=== PATIENT | male | born 1995 | race Caucasian/White ===

== ENCOUNTER 2019-05-22 01:46 | Emergency (ER) | payer BC ==
--- NOTE | 2019-05-22 02:25 | EDM.PDOC ---
ED HPI GENERAL MEDICAL PROBLEM - General Chief Complaint: Laceration Stated Complaint: HEAD INJURY Time Seen by Provider: 05/22/19 02:08 Source of Information: Reports: Patient History Limitations: Reports: No Limitations - History of Present Illness INITIAL COMMENTS - FREE TEXT/NARRATIVE: 23-year-old male who reports that he was taking a shower at about 12:30 AM and he slipped and fell hitting his head on the toilet. He denies any loss of consciousness. He reports pain in the area of his left occiput and there is a wound here with bleeding. He does admit to drinking alcohol tonight. He has had no nausea or vomiting. Denies any arm or leg pains. He reports the pain in his head is a 3-4/10. It is sore pain with some sharp and stinging. No vision problems. He is here with his significant other. There are no other associated signs or symptoms. There are no other modifying factors. 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 (see below) (Nothing) - Related Data Allergies Allergy/AdvReac Type Severity Reaction Status Date / Time No Known Allergies Allergy Verified 05/22/19 02:11 Home Meds: Home Meds NK [No Known Home Meds] 05/22/19 [History] Past Medical History - Past Health History Medical/Surgical History: Denies Medical/Surgical History (Surgical history as detailed below.) - Past Surgical History Musculoskeletal Surgical History: Reports: Other (See Below) (I&D of left wrist injury with repair of median nerve) Social & Family History - Tobacco Use Smoking Status *Q: Unknown Ever Smoked (Nonsmoker) - Alcohol Use Alcohol Use History: Yes Alcohol Use Frequency: Weekly (Has been drinking alcohol tonight.) - Living Situation & Occupation Living situation: Reports: with Significant Other Occupation: Employed ED ROS GENERAL - Review of Systems Review Of Systems: See Below Constitutional: Reports: No Symptoms HEENT: Reports: No Symptoms Respiratory: Reports: No Symptoms Cardiovascular: Reports: No Symptoms Endocrine: Reports: No Symptoms GI/Abdominal: Reports: No Symptoms : Reports: No Symptoms Musculoskeletal: Reports: No Symptoms Skin: Reports: Wound (Laceration to occipital scalp) Neurological: Reports: No Symptoms Hematologic/Lymphatic: Reports: No Symptoms Immunologic: Reports: Other (Last tetanus immunization was 2 years ago.) ED EXAM, SKIN/RASH Exam: See Below Exam Limited By: No Limitations General Appearance: Alert, WD/WN, Mild Distress, Other (Odor of alcohol on his breath. He is calm and cooperative.) Eye Exam: Bilateral Eye: EOMI (There is lateral gaze nystagmus a less than 45.) , Normal Inspection, PERRL Ears: Normal External Exam, Hearing Grossly Normal Nose: Normal Inspection, Normal Mucosa, No Blood Throat/Mouth: Normal Voice, No Airway Compromise Head: Normocephalic, Other (Laceration to left occipital scalp. No crepitus or bony deformity noted.) Neck: Normal Inspection, Non-Tender Respiratory/Chest: No Respiratory Distress, Lungs Clear, Normal Breath Sounds, No Accessory Muscle Use, Chest Non-Tender Cardiovascular: Normal Peripheral Pulses, Regular Rate, Rhythm, No Murmur Peripheral Pulses: 2+: Radial (L), Radial (R) GI/Abdominal: Normal Bowel Sounds, Soft, Non-Tender, No Mass Back Exam: Normal Inspection Extremities: Normal Range of Motion, Non-Tender, No Pedal Edema, Normal Capillary Refill, Other (Healing wound on the volar left wrist) Neurological: Alert, Normal Cognition, No Motor/Sensory Deficits Location, Skin: Head (Left occipital scalp) Characteristics: Linear (Laceration to the subcutaneous tissue that does not involve the galea. It is 3 cm in length.) ED SKIN PROCEDURES - Laceration/Wound Repair Left Occipital Head Appearance: Subcutaneous Distal NVT: Neuro & Vascular Intact Anesthetic Type: Local Local Anesthesia - Lidocaine (Xylocaine): 1% Plain Local Anesthetic Volume: 3cc Skin Prep: Saline Saline Irrigation (cc's): 250 Exploration/Debridement/Repair: Wound Explored, No Foreign Material Found Closed with: [place] (6 sophia placed) Lac/Wound length In cm: 3 Tetanus Status Addressed: Other (Patient was up-to-date on tetanus immunization. ) Complications: No Course - Vital Signs Last Recorded V/S: Last Vital Signs Temp 36.4 C 05/22/19 02:00 Pulse 80 05/22/19 02:00 Resp 18 05/22/19 02:00 BP 124/76 05/22/19 02:00 Pulse Ox 99 05/22/19 02:00 - Orders/Labs/Meds Orders: Active Orders 24 hr Category Date Time Status Cervical Spine wo Cont [CT] Stat Exams 05/22/19 02:19 Ordered Head wo Cont [CT] Stat Exams 05/22/19 02:19 Taken - Radiology Interpretation Free Text/Narrative:: CT scan of head showed no acute pathology and no evidence of acute intracranial injury per Dr. Blackman. CT scan of cervical spine showed no fracture or any other acute pathology per Dr. Blackman. - Re-Assessments/Exams Free Text/Narrative Re-Assessment/Exam: 05/22/19 03:26: The CT scans of the patient's head and neck showed no acute abnormality. The occipital scalp laceration has been cleaned and closed using skin sophia. The patient remains awake, alert and appropriate. He is vitally and neurologically stable. He is stable for discharge. Departure - Departure Time of Disposition: 03:30 Disposition: Home, Self-Care 01 Condition: Good (Improved) Clinical Impression: Occipital scalp laceration Qualifiers: Encounter type: initial encounter Qualified Code(s): S01.01XA - Laceration without foreign body of scalp, initial encounter Contusion of occipital region of scalp Qualifiers: Encounter type: initial encounter Qualified Code(s): S00.03XA - Contusion of scalp, initial encounter Acute alcohol intoxication Qualifiers: Complication of substance-induced condition: uncomplicated Qualified Code(s): F10.920 - Alcohol use, unspecified with intoxication, uncomplicated - Discharge Information Instructions: Alcohol Intoxication, [id number], Head Injury, Adult, Easy-to- Read, Stitches, [place], or Adhesive Wound Closure, [id number] Referrals: PCP,None [Primary Care Provider] - Forms: ED Department Discharge Additional Instructions: The CT scans of your head and neck showed no abnormalities. The wound on your scalp was cleaned and closed using skin sophia. You should wash your hair tonight and then dry your hair completely. Following this, do not get the wound wet until the sophia are out. Staple removal in 7 days. You may take Tylenol and ibuprofen as needed for pain. Avoid drinking alcohol for the next 2-3 days. You may take Tylenol and ibuprofen as needed for pain. Back to the emergency department for increase in pain, signs of infection, vomiting any other concerning sign or symptom. - My Orders Last 24 Hours: My Active Orders 05/22/19 02:19 Cervical Spine wo Cont [CT] Stat Head wo Cont [CT] Stat - Assessment/Plan Last 24 Hours: My Active Orders 05/22/19 02:19 Cervical Spine wo Cont [CT] Stat Head wo Cont [CT] Stat
== END 2019-05-22 03:45 | disposition home or self-care (01) ==
LOC: FB.ED 01:46
DX: S01.01XA Laceration without foreign body of scalp, initial encounter (principal); F10.120 Alcohol abuse with intoxication, uncomplicated; W01.198A Fall on same level from slipping, tripping and stumbling with subsequent striking against other object, initial encounter
CPT/HCPCS: 12002; 70450; 72125; 99284; J2001